=== PATIENT | female | born 1955 | race Caucasian/White ===

== ENCOUNTER 2019-06-24 14:33 | Emergency (ER) | payer BC ==
[2019-06-24 14:40] VITALS: BP 171/86
--- NOTE | 2019-06-24 15:13 | UC ---
Abdominal Pain Female HPI - HPI Summary HPI Summary: 63-year-old woman comes in with a chief complaint of Upper abdominal pain. 2 nights ago patient had liver and onions for dinner within 10-15 minutes she had moderate to severe epigastric and right upper quadrant pain. Yesterday morning she took an antacid medicine and symptoms improved. Last night she had pork chops and the pain within 10 minutes intensified again. At its worse the pain 8 out of 10. The pains about 4 out of 10. No fevers or chills. This morning pain was improved and she had squash the did have butter On it and the pain started again. No history of abdominal surgeries. - History of Current Complaint Chief Complaint: UCAbdominalPain Stated Complaint: ABDOMINAL COMPLAINT Time Seen by Provider: 06/24/19 14:37 Pain Intensity: 4 Allergies/Adverse Reactions: Allergies Allergy/AdvReac Type Severity Reaction Status Date / Time azithromycin Allergy See Comment Verified 06/24/19 14:41 Home Medications: Home Medications amLODIPine TAB* [Norvasc TAB*] 2.5 mg PO DAILY 08/26/14 [History Confirmed 06/24] Hydrochlorothiazide TAB* [Hydrodiuril TAB*] 12.5 mg PO DAILY 06/24/19 [History Confirmed 06/24/19] PMH/Surg Hx/FS Hx/Imm Hx Previously Healthy: Yes Cardiovascular History: Hypertension - Surgical History Surgical History: Yes Surgery Procedure, Year, and Place: [facility] - Family History Known Family History: Positive: Non-Contributory - Social History Alcohol Use: Occasionally Substance Use Type: None Smoking Status (MU): Former Smoker Review of Systems All Other Systems Reviewed And Are Negative: Yes Constitutional: Positive: Other - see hpi Skin: Positive: Negative Eyes: Positive: Negative ENT: Positive: Negative Respiratory: Positive: Negative Cardiovascular: Positive: Negative Gastrointestinal: Positive: Abdominal Pain Motor: Positive: Negative Neurovascular: Positive: Negative Musculoskeletal: Positive: Negative Neurological/Mental Status: Positive: Negative Psychological: Positive: Negative Is Patient Immunocompromised?: No Physical Exam Triage Information Reviewed: Yes Appearance: Well-Appearing, No Pain Distress, Well-Nourished Vital Signs: Initial Vital Signs Temp 98.2 F 06/24/19 14:38 Pulse 93 06/24/19 14:38 Resp 16 06/24/19 14:38 BP 171/86 06/24/19 14:38 Pulse Ox 98 06/24/19 14:38 Vital Signs Reviewed: Yes Eye Exam: Normal Eyes: Positive: Conjunctiva Clear Neck: Positive: Supple Respiratory: Positive: Lungs clear, Normal breath sounds, No respiratory distress Cardiovascular: Positive: RRR Abdomen Description: Positive: Other: - MILD TENDERNESS TO PALPATION RUQ AND EPIGASTRIUM Musculoskeletal: Positive: Strength Intact, ROM Intact Neurological: Positive: Alert Psychological: Positive: Age Appropriate Behavior Skin Exam: Normal Abd Pain Female Course/Dx - Course Course Of Treatment: Diver Tender: Daniel Zazueta F ([id number]) Supervisor Steffen House: MINNA ( NUANCE) Report Date: 06/24/2019 15:57:00 Report Status: Final ====== Start of Report Content Patient Name: STEPHANIE EDWARDS Medical Record# : [id number] Ordering Physician: Sylvain Peoples MD Acct.#: [id number] : 1955 Age: 63 Sex: F Location: [facility] Exam Date: 1437 ADM Status: [facility] ER Order Information: US GALL BLADDER Accession Number: [id number] CPT: 07908 INDICATION: Right upper quadrant pain. COMPARISON: Comparison is made to prior CT of the abdomen and pelvis from January 03, 2017. TECHNIQUE: Multiple real-time images of the right upper quadrant were obtained. FINDINGS: The gallbladder appear normal. No gallstones, gallbladder wall thickening or pericholecystic fluid is present. No positive sonographic Cisse sign is noted. No intra or extrahepatic ductal distention is present. The common bile duct measured 0.4 cm in diameter. The liver is enlarged spanning 23.2 cm in craniocaudad dimension and unchanged from the prior CT study. The liver is diffusely increased in echogenicity which correlates with fatty infiltration on the prior CT exam. No focal abnormality is seen. The pancreas is obscured by overlying bowel gas. The right kidney is normal in size without evidence for hydronephrosis. IMPRESSION: 1. NORMAL EXAMINATION OF THE GALLBLADDER. 2. 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 <Electronically signed by Daniel Zazueta MD in OV> 06/24/191552 Dictated By: Daniel Zazueta MD Dictated Date/Time: 06/24/191549 Transcribed Date/Time: 06/24/191549 Copy to: CC:Carroll Salas MD; Sylvain Peoples MD Imaging - [facility] Imaging - [facility] [address] [address] ph ) ph ([phone]) ph ([phone]) End of Report Content ==== I discussed the ultrasound reports with the patient. Patient has no fever. The plan is to treat with omeprazole 20 mg twice a day and have her follow-up with either her primary care doctor or Gen. surgery or gastroenterology. Also recommended that if the pain persisted or got worse or there was any worsening of overall symptoms such as fevers or chills feeling ill she should go directly to the emergency department. - Differential Dx/Diagnosis Provider Diagnosis: Upper abdominal pain Discharge ED - Sign-Out/Discharge Documenting (check all that apply): Patient Departure All imaging exams completed and their final reports reviewed: Yes - Discharge Plan Condition: Stable Disposition: HOME Patient Education Materials: Epigastric Pain (ED) Referrals: Carroll Salas MD [Primary Care Provider] - Gigi Murray DO [Doctor of Osteopathy] - Zeyad Martins MD [Medical Doctor] - Additional Instructions: FOLLOW UP WITH YOUR DOCTOR OR GASTROENTEROLOGY OR GENERAL SURGERY. GO TO THE EMERGENCY DEPARTMENT IF NOT IMPROVED OR WORSE; PAIN, FEVER, YOU FEEL ILL, BLOOD IN YOUR STOOL, YOU FEEL ILL OR ANY QUESTIONS OR CONCERNS. - Billing Disposition and Condition Condition: STABLE Disposition: Home
== END 2019-06-24 15:45 | disposition home or self-care (01) ==
LOC: UCEAST 14:33
DX: R10.11 Right upper quadrant pain (principal); R10.13 Epigastric pain; I10 Essential (primary) hypertension; Z79.899 Other long term (current) drug therapy; Z88.1 Allergy status to other antibiotic agents; Z87.891 Personal history of nicotine dependence
CPT/HCPCS: 76705; 99212; G0463